=== PATIENT | male | born 1955 | race Caucasian/White ===

== ENCOUNTER 2023-03-05 08:39 | Emergency (ER) | payer OTHER | END 2023-03-05 12:10 | LOC: EEVIPCON 08:39 → NAV ERS 08:39 | DX: S32.010A Wedge compression fracture of first lumbar vertebra, initial encounter for closed fracture (principal); I25.10 Atherosclerotic heart disease of native coronary artery without angina pectoris; J44.9 Chronic obstructive pulmonary disease, unspecified; I11.0 Hypertensive heart disease with heart failure; I50.9 Heart failure, unspecified; Z79.899 Other long term (current) drug therapy; Z79.82 Long term (current) use of aspirin; X50.1XXA Overexertion from prolonged static or awkward postures, initial encounter | CPT/HCPCS: 72131; 94760 ==